=== PATIENT | male | born 1980 | race Caucasian/White ===

== ENCOUNTER 2017-03-24 21:34 | Emergency (ER) | payer BC ==
[2017-03-24 21:40] VITALS: BP 112/70
[2017-03-24] MEDS ORDERED: Lidocaine 1% MPF* 2 ML VIAL INJ ONE (21:49)
[2017-03-24] MEDS ORDERED: Lidocaine 1% MPF* 2 ML VIAL ONE (21:52)
--- NOTE | 2017-03-24 23:06 | UC ---
Oscar Beard Nikita, scribed for Coretta Hale DO on 03/24/17 at 2205 . Laceration HPI - HPI Summary HPI Summary: This patient is a 36 year old M presenting to [facility] with a chief complaint of finger laceration since 30-45 minutes ago. The pts thumb was cut from a broken plate. The CC is described as on the thumb on the R hand, dull and sharp. The patient rates the pain 6/10 in severity. Symptoms aggravated by nothing. Symptoms alleviated by nothing. Patient denies fever, chills, V/D, abdominal pain, and CP. - History Of Current Complaint Chief Complaint: UCLaceration Stated Complaint: THUMB LAC Time Seen by Provider: 03/24/17 21:42 Hx Obtained From: Patient Laceration Location: Finger - thumb on R hand Mechanism Of Injury: Sharp Trauma Onset/Duration: Sudden Onset, Lasting Minutes - 30-45 minutes Severity: Moderate Pain Intensity: 6 Pain Scale Used: 0-10 Numeric Aggravating Factors: Nothing - Allergies/Home Medications Allergies/Adverse Reactions: Allergies Allergy/AdvReac Type Severity Reaction Status Date / Time No Known Allergies Allergy Verified 08/07/12 16:23 PMH/Surg Hx/FS Hx/Imm Hx Endocrine History: Other Other Endocrine History: No DM Cardiovascular History: Other Other Cardiovascular History: No CAD, HTN - Surgical History Surgical History: None - Family History Known Family History: Negative: Cardiac Disease, Hypertension, Diabetes - Social History Alcohol Use: Weekly Substance Use Type: None Smoking Status (MU): Never Smoked Tobacco Review of Systems Constitutional: Negative Cardiovascular: Negative Gastrointestinal: Other - nausea; denies vomiting, abdominal pain Musculoskeletal: Other: - laceration on thumb of R hand All Other Systems Reviewed And Are Negative: Yes Physical Exam Triage Information Reviewed: Yes Appearance: Well-Appearing, No Pain Distress, Well-Nourished Vital Signs: Initial Vital Signs Temp 97.9 F 03/24/17 21:38 Pulse 77 03/24/17 21:38 Resp 18 03/24/17 21:38 BP 112/70 03/24/17 21:38 Pulse Ox 100 03/24/17 21:38 Vital Signs Reviewed: Yes Eyes: Positive: Conjunctiva Clear. Negative: Discharge ENT: Positive: Hearing grossly normal, Other: - normal voice. Negative: Muffled /hoarse voice Neck exam: Normal Neck: Positive: Supple Respiratory: Positive: Lungs clear, Normal breath sounds, No respiratory distress, No accessory muscle use Cardiovascular: Positive: RRR, No Murmur Musculoskeletal: Positive: Other: - 1.5 laceration on thumb of R hand Neurological: Positive: Alert, Muscle Tone Normal Psychological Exam: Other - anxious Psychological: Positive: Age Appropriate Behavior Skin Exam: Normal, Other - Warm, Dry, Normal color Laceration Repair - Laceration Repair 1 Description: Irregular Laceration Size After Repair: Length (cm) - 1.5 Type Injection: Digital Anesthesia Used: 1.0% Lido Cleansing Completed Via Routine Prep: Yes Irrigation With Pressure Irrigation Device: Yes Closure Material: Sutures - 4 5-0 nylon sutures Closure Method: Single Layer Suture Of: Skin Suture Type: Nylon - 4 5-0 nylon sutures Laceration Course/Dx - Course/Dx Course Of Treatment: This patient is a 36 year old M presenting to [facility] with a chief complaint of finger laceration since 30-45 minutes ago. The pts thumb was cut from a broken plate. The CC is described as on the thumb on the R hand, dull and sharp. The patient rates the pain 6/10 in severity. Symptoms aggravated by nothing. Symptoms alleviated by nothing. Patient denies fever, chills, vomiting, abdominal pain, and CP. In the course, pt was given lidocaine and his laceration was sutured. Medications reviewed. Pt will be discharged. Pt is agreeable with this plan. - Differential Dx - Laceration/Wound Provider Diagnoses: laceration Discharge - Discharge Plan Condition: Stable Disposition: HOME Patient Education Materials: Laceration (ED) Referrals: No Primary Care Phys,NOPCP [Primary Care Provider] - Additional Instructions: FOLLOW-UP CARE: FOLLOW UP HERE IN 7-10 DAYS FOR SUTURE REMOVAL. AND You should establish with a private physician for follow-up care. If you are unable to get a timely appointment, or if you are worsening, call us or return for re-evaluation. An additional resource available to assist in finding the appropriate physician for your health care needs is the [facility]ician Referral Center. You may contact them by calling [phone]. The documentation as recorded by the Oscar bean Nikita accurately reflects the service I personally performed and the decisions made by , Coretta Hale DO.
== END 2017-03-24 23:00 | disposition home or self-care (01) ==
LOC: UCEAST 21:34
DX: S61.011A Laceration without foreign body of right thumb without damage to nail, initial encounter (principal); W45.8XXA Other foreign body or object entering through skin, initial encounter; Y92.9 Unspecified place or not applicable
CPT/HCPCS: 12001; 99211; G0463

== ENCOUNTER 2017-04-03 16:01 | Emergency (ER) | payer BC ==
--- NOTE | 2017-04-03 16:05 | UC ---
HPI Wound/Suture Re-check - HPI Summary HPI Summary: 36 year old male presents with complains of right thumb stitch removal. - History Of Current Complaint Stated Complaint: STITCHES REMOVAL Time Seen by Provider: 04/03/17 16:05 Hx Obtained From: Patient Onset/Duration: Sudden Onset Severity: Moderate Pain Scale Used: 0-10 Numeric - 0 - Allergies/Home Medications Allergies/Adverse Reactions: Allergies Allergy/AdvReac Type Severity Reaction Status Date / Time No Known Allergies Allergy Verified 04/03/17 16:07 PMH/Surg Hx/FS Hx/Imm Hx Previously Healthy: Yes - Surgical History Surgical History: None - Family History Known Family History: Negative: Cardiac Disease, Hypertension, Diabetes - Social History Alcohol Use: Weekly Substance Use Type: None Smoking Status (MU): Never Smoked Tobacco Review of Systems Constitutional: Negative Skin: Other - right thumb stitch removal Eyes: Negative ENT: Negative Respiratory: Negative Cardiovascular: Negative Gastrointestinal: Negative Genitourinary: Negative Motor: Negative Neurovascular: Negative Musculoskeletal: Negative Neurological: Negative Psychological: Negative All Other Systems Reviewed And Are Negative: Yes Physical Exam Triage Information Reviewed: Yes Vital Signs Reviewed: Yes Eye Exam: Normal ENT Exam: Normal Dental Exam: Normal Neck exam: Normal Neck: Positive: 1 Respiratory Exam: Normal Cardiovascular Exam: Normal Abdominal Exam: Normal Musculoskeletal Exam: Normal Neurological Exam: Normal Psychological Exam: Normal Skin: Positive: Other - right thumb stitch removal Course/Dx - Differential Dx - Laceration/Wound Provider Diagnoses: right thumb stitch removal # 4 Discharge - Discharge Plan Condition: Stable Disposition: HOME Patient Education Materials: Stitches Removal (ED) Referrals: No Primary Care Phys,NOPCP [Primary Care Provider] -
[2017-04-03 16:07] VITALS: BP 123/61
== END 2017-04-03 16:32 | disposition home or self-care (01) ==
LOC: UCEAST 16:01
DX: S61.011D Laceration without foreign body of right thumb without damage to nail, subsequent encounter (principal); W45.8XXD Other foreign body or object entering through skin, subsequent encounter

== ENCOUNTER 2017-10-02 14:07 | Emergency (ER) | payer BC ==
[2017-10-02 14:33] VITALS: BP 101/69
--- NOTE | 2017-10-02 14:38 | UC ---
Throat Pain/Nasal Ramon HPI - HPI Summary HPI Summary: Pt presents with sinus pain/pressure/congestion for the past 1.5 weeks. Has been taking nyquill, dayquill, and sudafed with no relief. Denies fever, chills , cough, SOB, chest pain, abdominal pain. - History of Current Complaint Hx Obtained From: Patient Onset/Duration: Gradual Onset Severity: Mild Pain Intensity: 2 Pain Scale Used: 0-10 Numeric <Yoav Berry - Last Filed: 10/02/17 15:12> <Jessica Florence - Last Filed: 10/02/17 15:27> - History of Current Complaint Chief Complaint: UCRespiratory Stated Complaint: RESP COMPLAINT - Allergies/Home Medications Allergies/Adverse Reactions: Allergies Allergy/AdvReac Type Severity Reaction Status Date / Time No Known Allergies Allergy Verified 04/03/17 16:07 Home Medications: Home Medications Pseudoephedrine HCl [Sudafed] 10/02/17 [History] PMH/Surg Hx/FS Hx/Imm Hx - Additional Past Medical History Additional PMH: None Previously Healthy: Yes - Surgical History Surgical History: None - Family History Known Family History: Negative: Cardiac Disease, Hypertension, Diabetes - Social History Occupation: Employed Full-time Lives: With Family Alcohol Use: Weekly Substance Use Type: None Smoking Status (MU): Never Smoked Tobacco - Immunization History Most Recent Tetanus Shot: Spring 2015 <Roderick Berryothy - Last Filed: 10/02/17 15:12> Review of Systems Constitutional: Negative Skin: Negative Eyes: Negative ENT: Nasal Discharge, Sinus Congestion, Sinus Pain/Tenderness Respiratory: Negative Cardiovascular: Negative Gastrointestinal: Negative Motor: Negative Neurovascular: Negative Musculoskeletal: Negative Neurological: Negative Psychological: Negative All Other Systems Reviewed And Are Negative: Yes <Yoav Berry - Last Filed: 10/02/17 15:12> Physical Exam - Summary Physical Exam Summary: GENERAL: NAD. WDWN HEENT: NC/AT. Conjunctiva clear without inflammation or discharge. TMs intact, no bulging, erythema, or edema. Nasal mucosa mildly swollen and erythematous with yellow discharge. TTP maxillary and frontal sinus. Posterior oropharynx without exudates, erythema, or tonsillar enlargement. Uvula midline. NECK: Supple without lymphadenopathy CHEST: CTAB. No r/r/w. No accessory muscle use. Breathing comfortably and in no distress. CV: RRR. Without m/r/g. Pulses intact. SKIN: No rash or erythema noted. NEURO: Alert. CN II-XII grossly intact. PSYCH: Age appropriate behavior. Triage Information Reviewed: Yes Vital Signs: Initial Vital Signs Temp 99.0 F 10/02/17 14:28 Pulse 90 10/02/17 14:28 Resp 16 10/02/17 14:28 BP 101/69 10/02/17 14:28 Pulse Ox 99 10/02/17 14:28 <Yoav Berry - Last Filed: 10/02/17 15:12> Vital Signs: Initial Vital Signs Temp 99.0 F 10/02/17 14:28 Pulse 90 10/02/17 14:28 Resp 16 10/02/17 14:28 BP 101/69 10/02/17 14:28 Pulse Ox 99 10/02/17 14:28 <Jessica Florence - Last Filed: 10/02/17 15:27> Throat Pain/Nasal Course/Dx - Course Course Of Treatment: Sinusitis - Differential Dx/Diagnosis Provider Diagnoses: Sinusitis <Yoav Berry - Last Filed: 10/02/17 15:12> Discharge - Sign-Out/Discharge Documenting (check all that apply): Discharge/Admit/Transfer - Billing Disposition and Condition Condition: STABLE Disposition: HOME <Yoav Berry - Last Filed: 10/02/17 15:12> - Billing Disposition and Condition Condition: STABLE Disposition: HOME <Jessica Florence - Last Filed: 10/02/17 15:27> - Discharge Plan Condition: Stable Disposition: HOME Prescriptions: Amoxicillin PO (*) [Amoxicillin 500 MG CAP*] 500 mg PO Q12H #20 cap Patient Education Materials: Sinusitis (ED) Forms: *Work Release Referrals: Angelo De La Torre MD [Primary Care Provider] - Additional Instructions: If you develop a fever, shortness of breath, chest pain, new or worsening symptoms - please call your PCP or go to the ED. Attestation Statement User Type: Provider - I was available for consult. This patient was seen by the MARCIO. The patient was not presented to, seen by, or examined by me. -Alexandre <Jessica Florence - Last Filed: 10/02/17 15:27>
== END 2017-10-02 15:10 | disposition home or self-care (01) ==
LOC: UCEAST 14:07
DX: J32.9 Chronic sinusitis, unspecified (principal)
CPT/HCPCS: 99212; G0463